=== PATIENT | female | born 1980 | race Caucasian/White ===

== ENCOUNTER 2018-05-23 12:44 | Day surgery (SDC) | payer MEDICAID ==
[~2018-05-23] VITALS: Ht 157.5 cm; Wt 54.5 kg
[~2018-05-23 12:44] MED LIST: KEP500T PO; LACT10SO7 PO; MULT1TAB74 PO; PANT-47 PO; PROP10TA10 PO; RIFA550T PO; SPIR50TA5 PO; ZINC PO; vitamin A PO
[2018-05-23 12:55] VITALS: BP 142/92
[2018-05-23] MEDS ORDERED: fentaNYL/PF 50MCG/1 ML 2ML syringe ONE (12:56)
[2018-05-23] MEDS ORDERED: LIDOcaine Viscous 15ml cup ONE (12:57)
[2018-05-23] MEDS ORDERED: MIDAZolam 5mg/5ml vial ONE (12:57)
[2018-05-23] MEDS ORDERED: propanolol (13:13)
[2018-05-23] MEDS ORDERED: LEVE750T6 PO (13:13)
[2018-05-23 13:58] VITALS: BP 112/71
[2018-05-23 14:08] VITALS: BP 139/71
[2018-05-23 14:18] VITALS: BP 109/70
[2018-05-23 14:28] VITALS: BP 113/67
== END 2018-05-23 14:34 | disposition home or self-care (01) ==
LOC: GI LAB 12:44
PROVIDERS: ATTEND Internal Medicine Gastroenterology
DX: I85.00 Esophageal varices without bleeding (principal); K76.6 Portal hypertension; K31.89 Other diseases of stomach and duodenum; I10 Essential (primary) hypertension; K74.60 Unspecified cirrhosis of liver; F17.210 Nicotine dependence, cigarettes, uncomplicated; F10.21 Alcohol dependence, in remission; Z88.1 Allergy status to other antibiotic agents; Z86.73 Personal history of transient ischemic attack (TIA), and cerebral infarction without residual deficits; Z86.69 Personal history of other diseases of the nervous system and sense organs; Z87.42 Personal history of other diseases of the female genital tract; Z87.19 Personal history of other diseases of the digestive system; Z87.39 Personal history of other diseases of the musculoskeletal system and connective tissue; Z98.890 Other specified postprocedural states; Z79.899 Other long term (current) drug therapy; Z88.8 Allergy status to other drugs, medicaments and biological substances; Z82.49 Family history of ischemic heart disease and other diseases of the circulatory system; Z80.1 Family history of malignant neoplasm of trachea, bronchus and lung; Z81.8 Family history of other mental and behavioral disorders
CPT/HCPCS: 43235; J2250; J3010; J7030; 99152; A4620